=== PATIENT | female | born 1940 | race African-American/Black ===

== ENCOUNTER 2019-02-02 12:59 | Emergency (ER) | payer MEDICARE, MEDICAID ==
[~2019-02-02 12:59] MED LIST: AMIT10TA6; PRO1
== END 2019-02-02 14:03 | disposition left against medical advice (07) ==
LOC: ER 12:59
DX: Z53.21 Procedure and treatment not carried out due to patient leaving prior to being seen by health care provider (principal); Z88.0 Allergy status to penicillin

== ENCOUNTER 2021-07-13 16:12 | Emergency (ER) | payer MEDICARE, MEDICAID ==
[~2021-07-13] VITALS: Ht 149.9 cm; Wt 53.0 kg
[2021-07-13] MEDS ORDERED: ACYCLOVIR INJ 500 MG in DEXT 5% WATER 100 ML IV SCH (20:45)
[2021-07-13] MEDS ORDERED: TETRACAINE 0.5% OPHTH DROPS 4ML BOTHEYE ONE (20:45)
[2021-07-13] MEDS ORDERED: FLUORESCEIN SODIUM 1MG/STRIP LEFTEYE ONE (20:45)
[2021-07-13 21:03] LABS: BASOPHILS % 0.4 % (0.0-2.0); EOSINOPHILS % 0.2 % (0.0-5.0); HEMATOCRIT. 40.4 % (36.0-48.0); HEMOGLOBIN. 13.7 g/dL (12.0-16.0); LYMPHOCYTES % 32.2 % (20.0-50.0); MEAN CORPUSCULAR HEMOGLOBIN 26.3 pg (28.0-32.0); MEAN CORPUSCULAR VOLUME 77.9 fL (81.0-99.0); MEAN PLATELET VOLUME 8.1 fl (7.4-10.4); MONOCYTES % 7.7 % (2.0-8.0); NEUTROPHILS % 59.5 % (40.0-76.0); PLATELET 207 x1000/uL (130-400); RED BLOOD CELL COUNT 5.19 mill/uL (4.2-5.4); RED CELL DISTRIBUTION WIDTH 15.3 % (11.6-14.6)
[2021-07-13 21:08] LABS: CHLORIDE 102 mEq/L (98-107)
[2021-07-13] MEDS ORDERED: GABAPENTIN 300MG CAPSULE PO ONE (22:15)
[2021-07-13] MEDS ORDERED: ACETAMINOPHEN 650MG/20.3ML UDC PO ONE (22:15)
[2021-07-13] MEDS ORDERED: GABA-532 MT (23:45)
[2021-07-13] MEDS ORDERED: POLY10DR3 EACHEYE (23:45)
[2021-07-13] MEDS ORDERED: LIDO700A30 TP (23:45)
[2021-07-13] MEDS ORDERED: ERYT1OIN6 EACHEYE (23:45)
[2021-07-13] MEDS ORDERED: ACYC200C31 MT (23:45)
[2021-07-14 03:44] VITALS: BP 125/88
[2021-07-15] MEDS ORDERED: TOPUD PO (11:22)
[2021-07-15] MEDS ORDERED: MOM MT (11:22)
[2021-07-15] MEDS ORDERED: LORA10CA MT (11:22)
== END 2021-07-14 03:42 | disposition home or self-care (01) ==
LOC: ER 16:12
DX: B02.9 Zoster without complications (principal); H10.022 Other mucopurulent conjunctivitis, left eye; R51.9 Headache, unspecified; E11.9 Type 2 diabetes mellitus without complications; I10 Essential (primary) hypertension; Z88.0 Allergy status to penicillin
CPT/HCPCS: 36415; 80053; 85025; 99283; J0133; J7060

== ENCOUNTER 2021-07-14 16:35 | Inpatient (IN) | payer MEDICARE, MEDICAID ==
[~2021-07-14] VITALS: Ht 152.4 cm; Wt 46.7 kg
[~2021-07-14 16:35] MED LIST changes: +ACYC200C31 MT; +ERYT1OIN6 EACHEYE; +GABA-532 MT; +LIDO700A30 TP; +POLY10DR3 EACHEYE
[2021-07-14] MEDS ORDERED: SODIUM CHLORIDE 0.9% 500 ML IV ONE (17:15)
[2021-07-14 18:07] LABS: BASOPHILS % 0.8 % (0.0-2.0); EOSINOPHILS % 0.2 % (0.0-5.0); HEMATOCRIT. 38.1 % (36.0-48.0); LYMPHOCYTES % 16.5 % (20.0-50.0); MEAN CORPUSCULAR HEMOGLOBIN 26.4 pg (28.0-32.0); MEAN CORPUSCULAR VOLUME 77.4 fL (81.0-99.0); MEAN PLATELET VOLUME 8.7 fl (7.4-10.4); MONOCYTES % 7.1 % (2.0-8.0); NEUTROPHILS % 75.4 % (40.0-76.0); PLATELET 182 x1000/uL (130-400); RED BLOOD CELL COUNT 4.93 mill/uL (4.2-5.4); RED CELL DISTRIBUTION WIDTH 14.9 % (11.6-14.6)
[2021-07-14 18:12] LABS: CHLORIDE 105 mEq/L (98-107)
[2021-07-15 06:31] LABS: CLARITY URINE CLEAR (CLEAR); COLOR URINE YELLOW (YELLOW); KETONES URINE NEGATIVE (NEGATIVE); LEUKOCYTE ESTERASE URINE NEGATIVE (NEGATIVE); NITRITE URINE NEGATIVE (NEGATIVE); OCCULT BLOOD URINE NEGATIVE (NEGATIVE); PH URINE 7.5 (4.5-8.0); PROTEIN URINE NEGATIVE (NEGATIVE); SPECIFIC GRAVITY URINE 1.007 (1.005-1.030); UROBILINOGEN URINE 0.2 E.U./dL (0.2-1.0)
[2021-07-15] MEDS ORDERED: DIPHENHYDRAMINE 50MG/ML VIAL IV PRN (09:30)
[2021-07-15] MEDS ORDERED: ONDANSETRON HCL 4MG/2ML INJ IV PRN (09:30)
[2021-07-15] MEDS ORDERED: IPRATROPIUM/ALBUTEROL 0.5-3(2.5)MG/3ML NEB HHN PRN (09:30)
[2021-07-15] MEDS ORDERED: CLONIDINE 0.1MG TABLET PO PRN (09:30)
[2021-07-15] MEDS ORDERED: ACETAMINOPHEN 325MG TABLET PO PRN (09:30)
[2021-07-15] MEDS ORDERED: LORA10CA MT (11:22)
[2021-07-15] MEDS ORDERED: MOM MT (11:22)
[2021-07-15] MEDS ORDERED: TOPUD PO (11:22)
[2021-07-15 11:32] VITALS: BP 125/71
[2021-07-15 12:00] VITALS: BP 122/72
[2021-07-15] MEDS ORDERED: GABAPENTIN 300MG CAPSULE PO PRN (14:15)
[2021-07-15] MEDS ORDERED: LIDOCAINE 5% PATCH TOP PRN (14:15)
[2021-07-15 16:00] VITALS: BP_SYST 118; BP_SYST 120; BP_DIAS 71; BP_DIAS 73
[2021-07-15] MEDS: ERYTHROMYCIN BASE 0.5% OPHTH OINT 3.5GM EACHEYE SCH (16:44)
[2021-07-15] MEDS: POLYMYXIN B SULFATE/TMP 10ML BOTTLE EACHEYE SCH (16:44)
[2021-07-15] MEDS: SODIUM CHLORIDE 0.9% 1,000 ML IV SCH (16:45)
[2021-07-15] MEDS: ACYCLOVIR 400 MG TABLET PO SCH ×2 (16:45→20:57)
[2021-07-15 20:00] VITALS: BP 115/55
[2021-07-15] MEDS: HYDROCODONE/ACETAMINOPHEN 5/325MG TABLET PO PRN (20:56)
[2021-07-16] VITALS: BP 130/50
[2021-07-16] MEDS: ERYTHROMYCIN BASE 0.5% OPHTH OINT 3.5GM EACHEYE SCH ×4 (00:16→17:43)
[2021-07-16] MEDS: POLYMYXIN B SULFATE/TMP 10ML BOTTLE EACHEYE SCH ×4 (00:16→17:44)
[2021-07-16 04:00] VITALS: BP 129/55
[2021-07-16] MEDS: ACYCLOVIR 400 MG TABLET PO SCH ×5 (06:06→21:14)
[2021-07-16 06:28] LABS: BASOPHILS % 0.4 % (0.0-2.0); EOSINOPHILS % 1.7 % (0.0-5.0); HEMATOCRIT. 33.5 % (36.0-48.0); HEMOGLOBIN. 11.6 g/dL (12.0-16.0); LYMPHOCYTES % 35.2 % (20.0-50.0); MEAN CORPUSCULAR HEMOGLOBIN 26.9 pg (28.0-32.0); MEAN CORPUSCULAR VOLUME 77.9 fL (81.0-99.0); MEAN PLATELET VOLUME 8.8 fl (7.4-10.4); MONOCYTES % 7.5 % (2.0-8.0); NEUTROPHILS % 55.2 % (40.0-76.0); PLATELET 184 x1000/uL (130-400); RED CELL DISTRIBUTION WIDTH 14.9 % (11.6-14.6)
[2021-07-16 06:35] LABS: CHLORIDE 111 mEq/L (98-107)
[2021-07-16 08:00] VITALS: BP 143/56
[2021-07-16] MEDS: AMITRIPTYLINE 10MG TABLET PO SCH (09:27)
[2021-07-16] MEDS: HYDROCODONE/ACETAMINOPHEN 5/325MG TABLET PO PRN ×2 (09:27→15:22)
[2021-07-16 09:39] LABS: *AMPHETAMINES SCREEN URINE NEGATIVE (NEGATIVE); *BARBITURATES SCREEN URINE NEGATIVE (NEGATIVE); *BENZODIAZEPINES SCREEN URINE NEGATIVE (NEGATIVE); *COCAINE SCREEN URINE NEGATIVE (NEGATIVE); CANNABINOID URINE SCREEN NEGATIVE (NEGATIVE); METHADONE URINE SCREEN NEGATIVE (NEGATIVE); OPIATES URINE SCREEN NEGATIVE (NEGATIVE); PHENCYCLIDINE URINE SCREEN NEGATIVE (NEGATIVE)
[2021-07-16 12:00] VITALS: BP 139/69
[2021-07-16 16:00] VITALS: BP 131/58
[2021-07-16 20:00] VITALS: BP 121/57
[2021-07-17] VITALS: BP 131/62
[2021-07-17] MEDS: ERYTHROMYCIN BASE 0.5% OPHTH OINT 3.5GM EACHEYE SCH ×4 (00:49→18:07)
[2021-07-17] MEDS: POLYMYXIN B SULFATE/TMP 10ML BOTTLE EACHEYE SCH ×4 (00:50→18:08)
[2021-07-17] MEDS: HYDROCODONE/ACETAMINOPHEN 5/325MG TABLET PO PRN ×2 (01:03→09:36)
[2021-07-17 04:00] VITALS: BP 145/69
[2021-07-17] MEDS: ACYCLOVIR 400 MG TABLET PO SCH ×4 (06:06→18:07)
[2021-07-17 06:24] LABS: BASOPHILS % 0.6 % (0.0-2.0); EOSINOPHILS % 2.4 % (0.0-5.0); HEMATOCRIT. 33.8 % (36.0-48.0); HEMOGLOBIN. 11.4 g/dL (12.0-16.0); MEAN CORPUSCULAR HEMOGLOBIN 26.3 pg (28.0-32.0); MEAN CORPUSCULAR VOLUME 78.4 fL (81.0-99.0); MEAN PLATELET VOLUME 8.4 fl (7.4-10.4); MONOCYTES % 6.7 % (2.0-8.0); NEUTROPHILS % 58.3 % (40.0-76.0); PLATELET 191 x1000/uL (130-400); RED BLOOD CELL COUNT 4.31 mill/uL (4.2-5.4); RED CELL DISTRIBUTION WIDTH 14.6 % (11.6-14.6)
[2021-07-17 06:43] LABS: CHLORIDE 109 mEq/L (98-107)
[2021-07-17 08:00] VITALS: BP 153/82
[2021-07-17] MEDS: AMITRIPTYLINE 10MG TABLET PO SCH (09:00)
[2021-07-17] MEDS: SODIUM CHLORIDE 0.9% 1,000 ML IV SCH ×2 (09:36→09:42)
[2021-07-17 12:00] VITALS: BP 161/79
[2021-07-17] MEDS ORDERED: AMLODIPINE 5MG TABLET PO SCH (13:00)
[2021-07-17 15:36] VITALS: BP 117/69
[2021-07-17 16:00] VITALS: BP 117/69
== END 2021-07-17 22:00 | disposition home health service (06) | DRG 204 ==
LOC: ER 16:35 → EDBEDREQTM 18:32 → EDBEDREQ 18:32 → EDBEDREQDT 07-15 04:34 → EDBEDREQTM 07-15 04:34 → 6WST 07-15 06:43
PROVIDERS: ADMIT Internal Medicine; ATTEND Internal Medicine
DX: I95.1 Orthostatic hypotension (principal); N17.9 Acute kidney failure, unspecified; B02.9 Zoster without complications; D64.9 Anemia, unspecified; M19.90 Unspecified osteoarthritis, unspecified site; E78.5 Hyperlipidemia, unspecified; I10 Essential (primary) hypertension; E86.9 Volume depletion, unspecified; Z79.899 Other long term (current) drug therapy; Z86.73 Personal history of transient ischemic attack (TIA), and cerebral infarction without residual deficits; Z88.0 Allergy status to penicillin
CPT/HCPCS: 36415; 71045; 80048; 80053; 80305; 81003; 84484; 85025; 93005; 93306; 93970; 97162; 99291; J1200; J7030; J7040